=== PATIENT | male | born 1995 | race African-American/Black ===

== ENCOUNTER 2022-06-06 05:50 | Emergency (ER) | payer MEDICAID ==
[~2022-06-06] VITALS: Ht 160 cm; Wt 70.0 kg
[2022-06-06 07:20] VITALS: BP 155/106
[2022-06-06] MEDS ORDERED: cefTRIAXone SOD 1,000 MG VL IM ONE (07:45)
[2022-06-06] MEDS ORDERED: LIDOCAINE VISCOUS 2% 15ML UD PO ONE (07:45)
[2022-06-06] MEDS ORDERED: GLUCAGON EMERG KIT 1mg/1ml IM ONE (07:45)
[2022-06-06] MEDS ORDERED: LIDO2SOL23 MT (09:24)
[2022-06-06] MEDS ORDERED: CEPH250S41 PO (09:24)
== END 2022-06-06 09:29 | disposition home or self-care (01) ==
LOC: ER 05:50
DX: K04.7 Periapical abscess without sinus (principal); R07.0 Pain in throat; Z88.1 Allergy status to other antibiotic agents
CPT/HCPCS: 70360; 96372; 99284; J0696; J1610

== ENCOUNTER 2023-12-06 18:51 | Emergency (ER) | payer MEDICAID ==
[~2023-12-06] VITALS: Ht 157.5 cm; Wt 68.9 kg
[~2023-12-06 18:51] MED LIST: CEPH250S PO; LIDO2SOL26 MT
[2023-12-06 21:25] VITALS: BP 132/82; PULSE 68; RESP 16; TEMP 98; O2SAT 98
[2023-12-06] MEDS: DexAMETHasone SOD PHOS 10MG/1ML VIAL INJ IM ONE (21:53)
[2023-12-06] MEDS ORDERED: IBUP-1456 PO (22:05)
[2023-12-06] MEDS ORDERED: AUG875T PO (22:05)
== END 2023-12-06 22:33 | disposition home or self-care (01) ==
LOC: ER 18:51
DX: S60.562A Insect bite (nonvenomous) of left hand, initial encounter (principal); L08.9 Local infection of the skin and subcutaneous tissue, unspecified; Z88.0 Allergy status to penicillin; W57.XXXA Bitten or stung by nonvenomous insect and other nonvenomous arthropods, initial encounter; Y93.89 Activity, other specified; Y92.89 Other specified places as the place of occurrence of the external cause; Y99.8 Other external cause status
CPT/HCPCS: 73130; 96372; 99283; J1100

== ENCOUNTER 2024-01-10 23:08 | Emergency (ER) | payer MEDICAID ==
[~2024-01-10] VITALS: Ht 160 cm; Wt 73.0 kg
[~2024-01-10 23:08] MED LIST changes: +AUG875T PO; +IBUP-1456 PO
[2024-01-11] MEDS: FAMOTIDINE 20 MG TAB PO ONE (00:19)
[2024-01-11] MEDS: DexAMETHasone SOD PHOS 10MG/1ML VIAL INJ IM ONE (00:19)
[2024-01-11] MEDS ORDERED: FAMO20TA10 PO (00:27)
[2024-01-11] MEDS ORDERED: LORA-622 PO (00:27)
--- NOTE | 2024-01-11 00:27 | ED.PDOC ---
History of Present Illness(SKN HPI Comments THIS IS A 28-YEAR-OLD MALE PRESENTS TO THE ED CHIEF COMPLAINT BODY RASH. PATIENT STATES SYMPTOMS STARTED AROUND 4 HOURS AGO. HE IS NOT SURE IF HE ATE SOMETHING THAT HE WAS ALLERGIC TO OR IF IT WAS THE FRIEND'S DOG THAT HE WAS PETTING. HE IS COMPLAINING OF RASH TO RIGHT ENTIRE ARM AND ABDOMEN. HE DOES S [place] IT IS ITCHY IN NATURE. HE DENIES ANY RECENT TRAVEL, FEVERS, CHILLS, NAUSEA, VOMITING, DIARRHEA, CHEST PAIN, DIFFICULTY BREATHING, OR SHORTNESS OF BREATH. Chief Complaint: Rash Time Seen by MD: 23:44 Primary Care Provider: NONE History of Present Illness: Nurses Notes, Medications, Allergies Allergies: Coded Allergies: Amoxicillin (Verified Allergy, Unknown, 01/05/16) Home Meds Active Scripts Famotidine (PEPCID TABLET) 20 Mg Tb, 1 TAB PO BID for 4 Days, #8 TAB 5 Refills Prov:PETRA FUNES [facility] 01/11/24 Loratadine (Claritin) 10 Mg Tab, 1 TAB PO DAILY for 7 Days, #7 TAB 5 Refills Prov:PETRA FUNES [facility] 01/11/24 Ibuprofen (Ibuprofen) 800 Mg Tab, 800 MG PO Q8HP PRN for 5 Days, #15 TAB Prov:PETRA FUNES [facility] 12/06/23 Amoxicillin & Pot Clavulanate (AUGMENTIN TABLET) 875 Mg Tb, 875 MG PO BID for 7 Days, #14 TAB Prov:PETRA FUNES [facility] 12/06/23 Lidocaine HCl (Mouth-Throat) (Lidocaine HCl Viscous) 2 % Sarah, 10 ML MT TID, #100 ML Prov:VIDA ODOM 06/06/22 Cephalexin (Cephalexin) 250 Mg/5 Ml Taylor, 10 ML PO QID for 7 Days, #280 ML Prov:VIDA ODOM 06/06/22 Mode of Arrival: Ambulatory Past Medical History PAST MEDICAL HISTORY: Denies Surgical History: Denies all surgeries Family History Family History: Reviewed,noncontributory to illness Social History Smoker: Non-Smoker Alcohol: Denies ETOH Use Drugs: Denies Drug Use Lives In: Home Constitutional: denies: chills, diaphoresis, fatigue, fever, malaise, sweats, weakness, others EENTM: denies: blurred vision, double vision, ear bleeding, ear discharge, ear drainage, ear pain, ear ringing, eye pain, eye redness, hearing loss, mouth pain, mouth swelling, nasal discharge, nose bleeding, nose congestion, nose pain, photophobia, tearing, throat pain, throat swelling, voice changes, others Respiratory: denies: cough, hemoptysis, orthopnea, SOB at rest, shortness of breath, SOB with excertion, stridor, wheezing, others Cardiovascular: denies: chest pain, dizzy spells, diaphoresis, Dyspnea on exertion, edema, irregular heart beat, left arm pain, lightheadedness, palpitations, PND, syncope, others Gastrointestinal: denies: abdomen distended, abdominal pain, blood streaked bowels, constipated, diarrhea, dysphagia, difficulty swallowing, hematemesis, melena, nausea, poor appetite, poor fluid intake, rectal bleeding, rectal pain, vomiting, others Genitourinary: denies: burning, dysuria, flank pain, frequency, hematuria, incontinence, penile discharge, penile sore, pain, testicle pain, testicle swelling, urgency, others Neurological: denies: dizziness, fainting, headache, left sided numbness, left sided weakness, numbness, paresthesia, pre-existing deficit, right sided numbness, right sided weakness, seizure, speech problems, tingling, tremors, weakness, others Musculoskeletal: denies: back pain, gout, joint pain, joint swelling, muscle pain, muscle stiffness, neck pain, others Integumetry: reports: rash (BILATERAL ARMS AND ABDOMEN); denies: bruises, change in color, change in hair/nails, dryness, laceration, lesions, lumps, wounds, others Allergic/Immunocompromised: denies: Difficulty Healing, Frequent Infections, Hives, Itching, others Hematologic/Lymphatic: denies: anemia, blood clots, easy bleeding, easy bruising, swollen glands, others Endocrine: denies: excessive hunger, excessive sweating, excessive thirst, excessive urination, flushing, intolerance to cold, intolerance to heat, unexplained weight gain, unexplained weight loss, others Psychiatric: denies: anxiety, bipolar disorder, depression, hopeless, panic disorder, schizophrenia, sleepless, suicidal, others Physical Exam General Appearance: No Apparent Distress, Normal HEENT: Normal ENT Inspection, Pharynx Normal, TMs Normal Neck: Full Range of Motion, Non-Tender, Normal, Normal Inspection Respiratory: Lungs Clear, No Accessory Muscle Use, No Respiratory Distress, Normal Breath Sounds Cardiovascular: No Murmur, Normal Peripheral Pulses, Regular Rate/Rhythm Breast Exam: Deferred Gastrointestinal: Non Tender, Soft Genitalia: Deferred Pelvic: Deferred Rectal: Deferred Extremities: Normal capillary refill, Normal inspection, Normal range of motion, Non-tender Musculoskeletal : Apperance: Normal Neurologic: Alert, business office specialist II-XII nml as Tested, No Motor Deficits, Normal Affect, Normal Mood, No Sensory Deficits Cerebellar Function: Normal Reflexes: Normal Skin: Dry, Normal Color, Rash (URTICARIAL RASH NOTED RIGHT ARM AND ABDOMEN. NO EXCORIATIONS, DRAINAGE OR OPEN LESIONS.), Warm Lymphatic: No Adenopathy Was a procedure done? Was a procedure done?: No Differential Diagnosis (INTG) Differential Diagnosis: Urticaria X-Ray, Labs, Meds, VS Vital Signs Date Time Temp Pulse Resp B/P (MAP) Pulse Ox O2 Delivery O2 Flow Rate FiO2 01/11/24 00:55 97.7 74 19 139/84 (102) 98 97.7 01/11/24 00:55 74 19 98 Room Air 01/10/24 23:15 97.7 82 18 157/79 (105) 100 Current Medications Medications (Trade) Dose Ordered Sig/Abhijit Route Start Time Stop Time Status Last Admin Dexamethasone Sodium Phosphate (Decadron Injection) 10 mg ONCE ONCE IM 01/11/24 00:15 01/11/24 00:16 DC 01/11/24 00:19 Famotidine (Pepcid Tablet) 40 mg ONCE ONCE PO 01/11/24 00:15 01/11/24 00:16 DC 01/11/24 00:19 X-Ray, Labs, Meds, VS Comment PATIENT GIVEN DECADRON 10 MG IM AND PEPCID 40 MG P.O. HE NOTES IMPROVEMENT IN SYMPTOMS REQUESTING DISCHARGE AT THIS TIME. ADVISED TO FOLLOW UP WITH HIS PCP IN 2-3 DAYS NECESSARY. PATIENT ADVISED TO RETURN TO THE ER FOR INCREASING RASH WITH THROAT SWELLING, DIFFICULTY BREATHING, SHORTNESS BREATH, CHEST PAIN, OR ANY CONCERNING SYMPTOMS. PATIENT AGREES WITH DISCHARGE PLAN OF CARE. Time of 1ST Reevaluation: 00:23 Reevaluation 1ST: Improved Patient Education/Counseling: Diagnosis, Treatment, Prognosis, Need For Follow Up Family Education/Counseling: No Family Present Departure 1 Departure Time of Disposition: 00:27 Impression: Primary Impression: Allergic reaction Qualified Codes: T78.40XA - Allergy, unspecified, initial encounter Disposition: HOME / SELF CARE / HOMELESS Condition: Stable e-Prescriptions Famotidine (PEPCID TABLET) 20 Mg Tb 1 TAB PO BID for 4 Days, #8 TAB 5 Refills Prov: PETRA FUNES 01/11/24 Loratadine (Claritin) 10 Mg Tab 1 TAB PO DAILY for 7 Days, #7 TAB 5 Refills Prov: PETRA FUNES 01/11/24 Discharged With: Self Critical Care Note Critical Care Time?: No Stability Stability form required: PETRA Landon Jan 11, 2024 00:27
[2024-01-11 00:55] VITALS: BP 139/84; PULSE 74; RESP 19; TEMP 97.7; O2SAT 98
== END 2024-01-11 00:57 | disposition home or self-care (01) ==
LOC: ER 23:08
DX: T78.40XA Allergy, unspecified, initial encounter (principal); Z88.0 Allergy status to penicillin; X58.XXXA Exposure to other specified factors, initial encounter
CPT/HCPCS: 96372; 99283; J1100

== ENCOUNTER 2024-02-21 21:00 | Emergency (ER) | payer MEDICAID ==
[~2024-02-21] VITALS: Ht 157.5 cm; Wt 72.3 kg
[~2024-02-21 21:00] MED LIST changes: +FAMO20TA10 PO; +LORA-622 PO
[2024-02-21 21:15] VITALS: BP 147/86
--- NOTE | 2024-02-21 21:29 | ED.PDOC ---
History of Present Illness(SKN HPI Comments 29y M who presents to the ED for chief complaint of animal bite. Pt states his dog was involved in a fight with another dog and pt states while he was starting to separate his dog, he got bit on the thumb of his R hand. Pt states he developed a bruise and states he cleaned the area with alcohol and applied a band-aid and came to the ED for further evaluation. Pt in the ED, with noted bleeding controlled and noted swelling or edema is noted. pt has noted abrasion and superficial laceration of approx 2 cm. Pt otherwise has noted fever, chills, shortness of breath or any associated symptoms. Pt otherwise denies any other symptoms at this time. Chief Complaint: Animal Bite Time Seen by MD: 21:25 Primary Care Provider: NONE History of Present Illness: Allergies Allergies: Coded Allergies: Amoxicillin (Verified Allergy, Unknown, 01/05/16) Home Meds Active Scripts Famotidine (PEPCID TABLET) 20 Mg Tb, 1 TAB PO BID for 4 Days, #8 TAB 5 Refills Prov:PETRA FUNES 01/11/24 Loratadine (Claritin) 10 Mg Tab, 1 TAB PO DAILY for 7 Days, #7 TAB 5 Refills Prov:PETRA FUNES 01/11/24 Ibuprofen (Ibuprofen) 800 Mg Tab, 800 MG PO Q8HP PRN for 5 Days, #15 TAB Prov:PETRA FUNES 12/06/23 Amoxicillin & Pot Clavulanate (AUGMENTIN TABLET) 875 Mg Tb, 875 MG PO BID for 7 Days, #14 TAB Prov:PETRA FUNES 12/06/23 Lidocaine HCl (Mouth-Throat) (Lidocaine HCl Viscous) 2 % Sarah, 10 ML MT TID, #100 ML Prov:VIDA ODOM 06/06/22 Cephalexin (Cephalexin) 250 Mg/5 Ml Taylor, 10 ML PO QID for 7 Days, #280 ML Prov:VIDA ODOM 06/06/22 Information Source: Patient Mode of Arrival: Ambulatory Brought in by: self Past Medical History PAST MEDICAL HISTORY: Denies Surgical History: Denies all surgeries Family History Family History: Reviewed,noncontributory to illness Social History Smoker: Non-Smoker Alcohol: Denies ETOH Use Drugs: Denies Drug Use Lives In: Home Constitutional: denies: chills, diaphoresis, fatigue, fever, malaise, sweats, weakness, others EENTM: denies: blurred vision, double vision, ear bleeding, ear discharge, ear drainage, ear pain, ear ringing, eye pain, eye redness, hearing loss, mouth pain, mouth swelling, nasal discharge, nose bleeding, nose congestion, nose pain, photophobia, tearing, throat pain, throat swelling, voice changes, others Respiratory: denies: cough, hemoptysis, orthopnea, SOB at rest, shortness of breath, SOB with excertion, stridor, wheezing, others Cardiovascular: denies: chest pain, dizzy spells, diaphoresis, Dyspnea on exertion, edema, irregular heart beat, left arm pain, lightheadedness, palpitations, PND, syncope, others Gastrointestinal: denies: abdomen distended, abdominal pain, blood streaked bowels, constipated, diarrhea, dysphagia, difficulty swallowing, hematemesis, melena, nausea, poor appetite, poor fluid intake, rectal bleeding, rectal pain, vomiting, others Genitourinary: denies: burning, dysuria, flank pain, frequency, hematuria, incontinence, penile discharge, penile sore, pain, testicle pain, testicle swelling, urgency, others Neurological: denies: dizziness, fainting, headache, left sided numbness, left sided weakness, numbness, paresthesia, pre-existing deficit, right sided numbness, right sided weakness, seizure, speech problems, tingling, tremors, weakness, others Musculoskeletal: denies: back pain, gout, joint pain, joint swelling, muscle pa in, muscle stiffness, neck pain, others Integumetry: reports: bruises (r thumb), laceration (R thumb ); denies: change in color, change in hair/nails, dryness, lesions, lumps, rash, wounds, others Allergic/Immunocompromised: denies: Difficulty Healing, Frequent Infections, Hives, Itching, others Hematologic/Lymphatic: denies: anemia, blood clots, easy bleeding, easy bruising, swollen glands, others Endocrine: denies: excessive hunger, excessive sweating, excessive thirst, excessive urination, flushing, intolerance to cold, intolerance to heat, unexplained weight gain, unexplained weight loss, others Psychiatric: denies: anxiety, bipolar disorder, depression, hopeless, panic disorder, schizophrenia, sleepless, suicidal, others All Other Systems: Reviewed and Negative Physical Exam General Appearance: No Apparent Distress, Normal HEENT: Normal ENT Inspection, Pharynx Normal, TMs Normal Neck: Full Range of Motion, Non-Tender, Normal, Normal Inspection Respiratory: Chest Non-Tender, Lungs Clear, No Accessory Muscle Use, No Respiratory Distress, Normal Breath Sounds Cardiovascular: No Edema, No JVD, No Murmur, No Gallop, Normal Peripheral Pulses, Regular Rate/Rhythm Breast Exam: Deferred Gastrointestinal: No Organomegaly, Non Tender, No Pulsatile Mass, Normal Bowel Sounds, Soft Genitalia: Deferred Pelvic: Deferred Rectal: Deferred Extremities: No calf tenderness, Normal capillary refill, Normal inspection, Normal range of motion, Non-tender, No pedal edema Musculoskeletal : Apperance: Normal Neurologic: Alert, harbor engineer II-XII nml as Tested, No Motor Deficits, Normal Affect, Normal Mood, No Sensory Deficits Cerebellar Function: Normal Reflexes: Normal Skin: Lacerations (2 cm laceration to 1st digit of R hand superficial) Lymphatic: No Adenopathy Was a procedure done? Was a procedure done?: No Differential Diagnosis (INTG) Differential Diagnosis: Abrasion, Cellulitis, Contusion, Lacerations X-Ray, Labs, Meds, VS Vital Signs Date Time Temp Pulse Resp B/P (MAP) Pulse Ox O2 Delivery O2 Flow Rate FiO2 02/21/24 21:15 99.2 94 16 147/86 (106) 98 X-Ray, Labs, Meds, VS Comment Imaging: X-rays and CT scans were reviewed and interpreted by this provider, imaging shows no fractures and no pathological disease. Pending radiology review. Laboratory: Labs reviewed and interpreted by this provider. No significant abnormalities noted. Patient has prior medical visits reviewed. Med reconciliation performed Vital signs reviewed Time of 1ST Reevaluation: 21:50 Reevaluation 1ST: Unchanged Patient Education/Counseling: Diagnosis, Treatment, Need For Follow Up (Follow up in the next 24 hours if symptoms worsen) Family Education/Counseling: No Family Present Departure 1 Departure Time of Disposition: 21:34 Impression: Primary Impression: Dog bite Qualified Codes: W54.0XXA - Bitten by dog, initial encounter Disposition: HOME / SELF CARE / HOMELESS Condition: Fair e-Prescriptions Clindamycin Hcl (Clindamycin Hcl) 300 Mg Cap 1 CAP PO TID for 5 Days, #15 CAP Prov: LEIGHTON GEORGE 02/21/24 Discharged With: Self Critical Care Note Critical Care Time?: No Stability Stability form required: No Heart Score Heart Score: Heart Score Response (Comments) Value History N/A 0 EKG N/A 0 Age N/A 0 Risk Factors N/A 0 Troponin N/A 0 Total 0 I personally scribed for LEIGHTON GEORGE ([email or web address]) on 02/21/24 at 21:29. Electronically submitted by Georgiana Childs ([email or web address]). LEIGHTON GEORGE Feb 21, 2024 21:29
[2024-02-21] MEDS ORDERED: CLIN1CAP70 PO (21:35)
[2024-02-21 22:09] VITALS: PULSE 94; RESP 16; O2SAT 98
== END 2024-02-21 22:11 | disposition home or self-care (01) ==
LOC: ER 21:00
DX: S61.011A Laceration without foreign body of right thumb without damage to nail, initial encounter (principal); Z88.0 Allergy status to penicillin; W54.0XXA Bitten by dog, initial encounter; Y93.89 Activity, other specified; Y92.89 Other specified places as the place of occurrence of the external cause; Y99.8 Other external cause status

== ENCOUNTER 2024-03-08 20:09 | Emergency (ER) | payer MEDICAID ==
[~2024-03-08] VITALS: Ht 160 cm; Wt 71.9 kg
[~2024-03-08 20:09] MED LIST changes: +CLIN1CAP70 PO
[2024-03-08 20:58] VITALS: BP 145/85; PULSE 70; RESP 18; TEMP 99.5; O2SAT 100
[2024-03-08 22:17] LABS: COVID19 ANTIGEN SOFIA FIA NEGATIVE (NEGATIVE)
[2024-03-08 22:24] LABS: Rapid Influenza A Negative (Negative); Rapid Influenza B Positive (Negative)
[2024-03-08] MEDS ORDERED: PRED20TA2 PO (23:10)
[2024-03-08] MEDS ORDERED: OSEL75CA5 PO (23:10)
[2024-03-08] MEDS ORDERED: IBUP-1456 PO (23:10)
--- NOTE | 2024-03-08 23:10 | ED.PDOC ---
History of Present Illness HPI Comments 29-YEAR-OLD MALE PRESENTS TO ER WITH COMPLAINTS OF FLU-LIKE SYMPTOMS X2 DAYS. PATIENT REPORTS HE HAS BEEN EXPERIENCING DRY COUGH AND INTERMITTENT BODY ACHES X2 DAYS. DENIES USE OF MEDICATIONS FOR CURRENT SYMPTOMS. HE RATES HIS CURRENT BODY ACHES PAIN A 10/10. PATIENT PRESENTS TO ER AMBULATORY ON ARRIVAL, WITH STEADY GAIT, IN NO DISTRESS. DENIES FEVER, SHORTNESS OF BREATH, CHEST PAIN, SORE THROAT, HEADACHE, DIZZINESS, NAUSEA/VOMITING, KNOWN EXPOSURE TO SICK CONTACTS, ABDOMINAL PAIN, CHANGES IN URINATION/BM OR ANY FURTHER SYMPTOMS/COMPLAINTS Chief Complaint: Flu like Time Seen by MD: 21:30 Primary Care Provider: UNKNOWN Reviewed Notes: Nurses Notes, Medications, Allergies Information Source: Patient Mode of Arrival: Ambulatory Past Medical History PAST MEDICAL HISTORY: Denies Surgical History: Denies all surgeries Family History Family History: Unknown Social History Smoker: Non-Smoker Alcohol: Denies ETOH Use Drugs: Denies Drug Use Lives In: Home Constitutional: See HPI EENTM: No Symptoms Reported Respiratory: See HPI Cardiovascular: No Symptoms Reported Gastrointestinal: No Symptoms Reported Genitourinary: No Symptoms Reported Neurological: No Symptoms Reported Musculoskeletal: No Symptoms Reported Integumentary: No Symptoms Reported Allergic/Immunocompromised: others (DENIES) Hematologic/Lymphatic: No Symptoms Reported Endocrine: No Symptoms Reported Psychiatric: No symptoms Reported Physical Exam General Appearance: No Apparent Distress HEENT: Normal ENT Inspection, PERRL/EOMI, Pharynx Normal, TMs Normal Neck: Full Range of Motion, Non-Tender, Normal Respiratory: Chest Non-Tender, Lungs Clear, No Accessory Muscle Use, No Respiratory Distress, Normal Breath Sounds Cardiovascular: No Murmur, No Gallop, Regular Rate/Rhythm Breast Exam: Deferred Gastrointestinal: Non Tender, No Pulsatile Mass, Soft Genitalia: Deferred Pelvic: Deferred Rectal: Deferred Extremities: Normal capillary refill, Normal range of motion Neurologic: Alert, wire mill rover II-XII nml as Tested, No Motor Deficits, Normal Affect, Normal Mood, No Sensory Deficits Cerebellar Function: Normal Reflexes: Normal Skin: Dry, Normal Color, Warm Peripheral Pulses: 2+ Radial (R), 2+ Radial (L), 2+ Brachial (R), 2+ Brachial (L) Lymphatic: No Adenopathy Was a procedure done? Was a procedure done?: No Sedation Sedation?: No Fever Differential Dx Differential Diagnosis: Pneumonia, Sepsis, Pharyngitis, Other (COVID-19) X-Ray, Labs, Meds, VS Vital Signs Date Time Temp Pulse Resp B/P (MAP) Pulse Ox O2 Delivery O2 Flow Rate FiO2 03/08/24 20:58 99.5 70 18 145/85 (105) 100 Lab Test 03/08/24 20:47 Range/Units Influenza Type A Antigen Negative Negative Influenza Type B Antigen Positive Negative SARS-CoV-2 Antigen (Rapid) Negative NEGATIVE ALL SWAB RESULTS REVIEWED-INFLUENZA B POSITIVE TORADOL 60 MG IM ORDERED IBUPROFEN 800 MG P.O. ORDERED PATIENT HAD IMPROVEMENT IN SYMPTOMS AND IN NO DISTRESS PRIOR TO DISCHARGE ADVISED TO DRINK PLENTY OF FLUIDS ADVISED TO FOLLOW UP WITH PCP IN 1-2 DAYS PATIENT VERBALIZED UNDERSTANDING AND AGREEABLE WITH CURRENT PLAN OF CARE ADVISED TO RETURN TO ER IMMEDIATELY IF SYMPTOMS WORSEN Time of 1ST Reevaluation: 22:44 Reevaluation 1ST: N/A Time of 2ND Reevaluation: 23:10 Reevaluation 2ND: Improved Patient Education/Counseling: Diagnosis, Treatment, Prognosis, Need For Follow Up Family Education/Counseling: No Family Present Departure 1 Departure Time of Disposition: 23:12 Impression: Primary Impression: Influenza B Disposition: HOME / SELF CARE / HOMELESS Condition: Stable e-Prescriptions Prednisone (Prednisone) 20 Mg Tab 20 MG PO BID for 5 Days, #10 TAB 0 Refills Prov: ANGEL QUIÑONEZ 03/08/24 Ibuprofen (Ibuprofen) 800 Mg Tab 1 TAB PO TID PRN, #30 TAB 0 Refills Prov: ANGEL QUIÑONEZ 03/08/24 Oseltamivir Phosphate (Tamiflu) 75 Mg Cap 1 CAP PO BID for 5 Days, #10 CAP 0 Refills Prov: ANGEL QUIÑONEZ 03/08/24 Critical Care Note Critical Care Time?: No Stability Stability form required: No Heart Score Heart Score: Heart Score Response (Comments) Value History N/A 0 EKG N/A 0 Age N/A 0 Risk Factors N/A 0 Troponin N/A 0 Total 0 ANGEL QUIÑONEZ Mar 08, 2024 23:10
[2024-03-09] MEDS: OSELTAMIVIR 75 MG CAP PO ONE (00:25)
[2024-03-09] MEDS: IBUPROFEN 800 MG TAB PO ONE (00:25)
== END 2024-03-09 00:39 | disposition home or self-care (01) ==
LOC: ER 20:09
DX: J10.1 Influenza due to other identified influenza virus with other respiratory manifestations (principal); R05.9 Cough, unspecified; M79.10 Myalgia, unspecified site; Z20.822 Contact with and (suspected) exposure to COVID-19
CPT/HCPCS: 36415; 87426; 87804